=== PATIENT | male | born 1955 | race Hispanic/Latino ===

== ENCOUNTER 2017-08-08 17:24 | Emergency (ER) | payer BC, MEDICAID, OTHER ==
[2017-08-08 17:48] VITALS: RESP 20
--- NOTE | 2017-08-08 18:02 | ED PDOC ---
Arrival/HPI - General Chief Complaint: Abdominal Pain Time Seen by Provider: 08/08/17 17:46 Historian: Patient, Family - History of Present Illness Narrative History of Present Illness (Text): 08/08/17 17:58 61 y/o male, no pmh, nkda, here with the son, c/o acute onset of the lt. flank pain started about 3 hours ago while he was sitting which he was vomiting earlier but then the pain resolved. Pt. stated that the pain was sharp, never had this howard pain before, took advil which he feels better now in the ER. Pt. has no numbness or tingling, no urinary or bowel incontinence , no night sweat, no rash, no palpitation, no chest pain shortness of breath, no other medical or psychological complaints. Pt. is here with the son, asking to leave the ER as he feels better already and doesn't want any labs or radiology studies , only agreed to the EKG which I recommended to him. Past Medical History - Provider Review Nursing Documentation Reviewed: Yes - Infectious Disease Hx of Infectious Diseases: None - Psychiatric Hx Psychophysiologic Disorder: No Hx Substance Use: No - Anesthesia Hx Anesthesia: No Hx Anesthesia Reactions: No Hx Malignant Hyperthermia: No Family/Social History - Physician Review Nursing Documentation Reviewed: Yes Family/Social History: Unknown Family HX Smoking Status: Never Smoked Hx Alcohol Use: No Hx Substance Use: No Allergies/Home Meds Allergies/Adverse Reactions: Allergies No Known Allergies Allergy (Verified 08/08/17 17:49) Home Medications: Home Meds Medication Instructions Recorded Confirmed No Known Home Med 08/08/17 08/08/17 Review of Systems - Review of Systems Constitutional: absent: Fatigue, Fevers Eyes: absent: Vision Changes ENT: absent: Hearing Changes Respiratory: absent: SOB, Cough Cardiovascular: absent: Chest Pain Gastrointestinal: absent: Abdominal Pain, Diarrhea, Nausea, Vomiting Musculoskeletal: absent: Arthralgias, Back Pain, Neck Pain, Joint Swelling, Myalgias Skin: absent: Rash, Pruritis Neurological: absent: Headache, Dizziness, Focal Weakness, Gait Changes, Speech Changes Physical Exam Vital Signs Reviewed: Yes Vital Signs Temp Pulse Resp BP Pulse Ox 08/08/17 18:14 98 F 75 20 121/72 100 08/08/17 17:44 98.5 F 66 20 120/93 H 96 Temperature: Afebrile Blood Pressure: Hypertensive Pulse: Regular Respiratory Rate: Normal Appearance: Positive for: Well-Appearing, Non-Toxic, Comfortable Pain Distress: None Mental Status: Positive for: Alert and Oriented X 3 - Systems Exam Head: Present: Atraumatic, Normocephalic Pupils: Present: PERRL Extroacular Muscles: Present: EOMI Conjunctiva: Present: Normal Ears: Present: NORMAL TM, Normal Canal. No: Erythema Mouth: Present: Moist Mucous Membranes Neck: Present: Normal Range of Motion Respiratory/Chest: Present: Clear to Auscultation, Good Air Exchange. No: Respiratory Distress, Accessory Muscle Use, Wheezes, Decreased Breath Sounds, Rales, Retracting, Rhonchi, Tachypneic, Tender to Palpation Cardiovascular: Present: Regular Rate and Rhythm, Normal S1, S2. No: Murmurs Abdomen: Present: Normal Bowel Sounds, Other (negative lemons signs). No: Tenderness, Distention, Peritoneal Signs, Rebound, Guarding Back: Present: Normal Inspection, Other (Thoracic to LS spine: no midline tenderness or step off, no paraspinal tenderness, no rash, FROM without limitation, sensation intact, motor 5/5, no rash. ). No: CVA Tenderness, Midline Tenderness, Paraspinal Tenderness, Pain with Leg Raise Upper Extremity: Present: Normal Inspection. No: Cyanosis, Edema Lower Extremity: Present: Normal Inspection. No: Edema Neurological: Present: GCS=15, Speech Normal, Motor Func Grossly Intact, Gait Normal, Memory Normal Skin: Present: Warm, Dry, Normal Color. No: Rashes Psychiatric: Present: Alert, Oriented x 3, Normal Insight, Normal Concentration Medical Decision Making ED Course and Treatment: 08/08/17 18:02 -I explained to the patient that he should get at least labs/radiology studies including but not limited to rule out any ureterlithiasis vs. pneumonia vs. pancreatitis vs. myocardial infarction vs. pylonephritis vs. diverticulitis vs. dissection or any other possible unknown/undiagnosed disease. Pt. refused all the labs and radiology testing including the medications, only agreed to the EKG. -EKG ordered. 08/08/17 18:16 -NSR @ 80 BPM, no ST elevation or depression, T wave in version on the lead III and aVF. -I explained to the son and the patient that I would like to obtain lab works and radiology studies for this sudden acute onset of the pain which triggered him to come to the ER, pt. doesn't wanna stay and wants to leave the ER. The son respect his father's decision of leaving and will drive him home AMA ER The patient refuses to stay in the Emergency Room (ER) to continue the care and wishes to leave the emergency department against my medical advice. Patient was told that staying in the ER is necessary and a full explanation of the reasons why was given, and understood by the patient with alert and oriented x4. The risk of leaving were explained in laymans term and including but not limited to ureterlithiasis, pneumonia, pancreatitis, cancer, tumor, myocarial infarction , coronary artery disease, pylonephritis, diverticulitis, bowel perforation, dissection, renal stone , pain, worsening of condition, permanent disability and from an undiagnosed or untreated condition. The patient accepts these risks, and is in my judgment is competent and capable of understanding the clinical situation and explanation of the risk of leaving. Patient was given the opportunity to ask questions and change mind. The patient was instructed regarding the best care for the present symptoms, and to follow up as soon as possible with the primary care doctor including specialist or return to the emergency department at an y time for continuing care. -AMA signed -Pt. left the ER prior to signing the discharge paper. Pt. walk out the ER with the son with normal gait and posture, stated that he has no pain now. -Pt. refused prescriptions -You leave the ER against medical advice which you refused labs/radiology studies and further observation to correctly diagnosed your complaints today at the ER. You are advised to stay in the ER for further evaluation. Please follow up with your own pmd as soon as possible. - EKG Interpretation EKG Interpretation (Text): 08/08/17 18:16 NSR @ 80 BPM, no ST elevation or depression, T wave in version on the lead III and aVF. Interpreted by ED Physician: Yes Type: 12 lead EKG Comparison: No previous EKG avail. - PA / SCHOOL OFFICE ASSISTANT / Resident Statement MD/DO has reviewed & agrees with the documentation as recorded. Disposition/Present on Arrival - Present on Arrival Any Indicators Present on Arrival: No History of DVT/PE: No History of Uncontrolled Diabetes: No Urinary Catheter: No History of Decub. Ulcer: No History Surgical Site Infection Following: CABG - Mediastinitis, None - Disposition Have Diagnosis and Disposition been Completed?: Yes Diagnosis: Flank pain, Back pain, Abnormal EKG, Non-compliant patient Disposition: AGAINST MEDICAL ADVICE Disposition Time: 18:20 Condition: STABLE Additional Instructions: -You leave the ER against medical advice which you refused labs/radiology studies and further observation to correctly diagnosed your complaints today at the ER. You are advised to stay in the ER for further evaluation. Please follow up with your own pmd as soon as possible. Referrals: [facility], [Non-Staff] - Follow up with primary Neris Ernandez MD [Staff Provider] - Follow up with primary Paul Echols MD [Staff Provider] - Follow up with primary Forms: [facility] ([place]ian), WORK NOTE
[2017-08-08 18:16] VITALS: BP 121/72; PULSE 75; TEMP 98; O2SAT 100
--- NOTE | 2017-08-09 08:41 | CARD ---
APPROVED REPORT EKG Measurement Heart [id number] [place] [id number] <Conclusion> Normal sinus rhythm LAD PRWP NSSTW changes
== END 2017-08-08 18:20 | disposition left against medical advice (07) ==
LOC: ED 17:24
DX: R10.9 Unspecified abdominal pain (principal); M54.9 Dorsalgia, unspecified; R94.31 Abnormal electrocardiogram [ECG] [EKG]; Z91.19 Patient's noncompliance with other medical treatment and regimen

== ENCOUNTER 2017-08-10 13:52 | Inpatient (IN) | payer BC ==
[2017-08-10] MEDS ORDERED: Sodium Chloride 0.9% 1,000 ML IV STA (14:36)
--- NOTE | 2017-08-10 14:42 | ED PDOC ---
Arrival/HPI - General Chief Complaint: Abdominal Pain Time Seen by Provider: 08/10/17 14:21 Historian: Patient - History of Present Illness Narrative History of Present Illness (Text): 08/10/17 14:43 A 61 year old male presents to the emergency department complaining of left lower quadrant abdominal discomfort since this morning. No relieving or exacerbating factors. Patient denies any nausea, vomiting or any other complaints at this time. Last normal bowel movement was this morning. Symptom Onset: Sudden Symptom Course: Unchanged Activities at Onset: Rest Context: Home Past Medical History - Provider Review Nursing Documentation Reviewed: Yes - Infectious Disease Hx of Infectious Diseases: None - Psychiatric Hx Psychophysiologic Disorder: No Hx Substance Use: No - Anesthesia Hx Anesthesia: No Hx Anesthesia Reactions: No Hx Malignant Hyperthermia: No Family/Social History - Physician Review Nursing Documentation Reviewed: Yes Family/Social History: No Known Family HX Smoking Status: Never Smoked Hx Alcohol Use: No Hx Substance Use: No Allergies/Home Meds Allergies/Adverse Reactions: Allergies No Known Allergies Allergy (Verified 08/10/17 14:03) Home Medications: Home Meds Medication Instructions Recorded Confirmed No Known Home Med 08/08/17 08/10/17 Review of Systems - Physician Review All systems were reviewed & negative as marked: Yes Physical Exam - Physical Exam Narrative Physical Exam (Text): 08/10/17 14:39 - Review of Systems Constitutional: Normal. absent: Fatigue, Weight Change, Fevers Eyes: Normal ENT: denies sore throat, denies tristhmus Respiratory: Normal. absent: SOB, Cough, Sputum Cardiovascular: absent: Chest Pain, Palpitations, Syncope Gastrointestinal: left lower quadrant abdominal discomfort. absent: Diarrhea, Nausea, Vomiting Genitourinary: Normal. absent: Dysuria, Frequency, Hematuria Musculoskeletal: Normal. absent: Arthralgias, Back Pain, Neck Pain Skin: no rashes, no erythema Neurological: absent: Focal Weakness Endocrine: Normal Hemo/Lymphatic: Normal Psychiatric: No suicidal or homicidal ideations Physical exam Patient appears age appropriate in no distress, speaking full sentences without difficulty - Systems Exam Head: Present: Atraumatic, Normocephalic Pupils: Present: PERRL Extroacular Muscles: Present: EOMI Conjunctiva: Present: Normal Mouth: Present: Moist Mucous Membranes Neck: Present: Normal Range of Motion. No: MIDLINE TENDERNESS, Paraspinal Tenderness Respiratory/Chest: Present: Clear to Auscultation, Good Air Exchange. No: Respiratory Distress, Accessory Muscle Use, Tachypneic Cardiovascular: Present: Regular Rate and Rhythm, Normal S1, S2, Peripheal Pulses Present. No: Murmurs Abdomen: Present: LLQ tenderness to palpation, Normal Bowel Sounds. No: Distention, Peritoneal Signs, Rebound, Guarding Back: Present: Normal Inspection. No: Midline Tenderness, Paraspinal Tenderness Upper Extremity: Present: Normal Inspection. No: Cyanosis, Edema Lower Extremity: Present: Normal Inspection. No: Edema Neurological: Present: GCS=15, Speech Normal, cranial nerves II through XII fully intact with no cerebellar abnormality, neurosensory fully intact. No focal neurological deficits. Skin: Present: Warm, Dry, Normal Color. No: Rashes Lymphatic: Present: OX3, NI, NC Psychiatric: Present: Alert, Oriented x 3, Normal Insight, Normal Concentration Vital Signs Reviewed: Yes Vital Signs Temp Pulse Resp BP Pulse Ox 08/10/17 14:03 98.3 F 72 16 141/90 98 Temperature: Afebrile Blood Pressure: Normal Pulse: Regular Respiratory Rate: Normal Appearance: Positive for: Well-Appearing, Non-Toxic, Comfortable Pain Distress: None Mental Status: Positive for: Alert and Oriented X 3 Medical Decision Making ED Course and Treatment: 08/10/17 14:37 Impression: A 61 year old male with left lower quadrant abdominal discomfort. On physical exam, patient had left lower quadrant tenderness to palpation. Differential Diagnosis included but are not limited to: diverticulitis vs. nonspecific abdominal pain Plan: -- CT abd/pelvis -- labs -- Urinalysis -- IV fluids, Toradol -- Reassess and disposition Prior Visits: Notes and results from previous visits were reviewed. Patient was last seen in the emergency department on 08/08/17 for evaluation of left flank pain. Patient was signed out against medical advice. Progress Notes: 08/10/17 18:[address] scan as read by radiologist Dr. Cabrera shows obstructive uropathy in the proximal left ureteral calculus at the level of L4, measuring 5 mm. This is accompanied by proximal hydroureter and hydronephrosis. Patient states that he still having some left lower quadrant discomfort. Leukocytosis noted as well 08/10/17 18:[address] Bart Hester, accepted admission to his service with Dr. Su on consult pt aware of and agrees with plan - Lab Interpretations Lab Results: 08/10/17 15:05 08/10/17 15:05 Lab Results 08/10/17 15:05: Sodium 141, Potassium 4.0, Chloride 106, Carbon Dioxide 25, Anion Gap 14, BUN 20, Creatinine 1.2, Est GFR ( Amer) > 60, Est GFR (Non- Af Amer) > 60, Random Glucose 95, Calcium 9.6, Total Bilirubin 0.9, AST 37, ALT 31, Alkaline Phosphatase 75, Total Protein 7.1, Albumin 4.4, Globulin 2.7, Albumin/Globulin Ratio 1.6, Lipase 55 08/10/17 15:05: PT 10.7, INR 0.99, APTT 28.8 08/10/17 15:05: WBC 12.9 H, RBC 5.20, Hgb 16.2, Hct 45.2, MCV 86.9, MCH 31.2, MCHC 35.8, RDW 12.9, Plt Count 197, MPV 11.1 H, Gran % 81.5 H, Lymph % (Auto) 9.3 L, Maries % (Auto) 9.0 H, Eos % (Auto) 0.0 L, Baso % (Auto) 0.2, Gran # 10.55 H, Lymph # 1.2, Maries # 1.2 H, Eos # 0.0, Baso # 0.03 I have reviewed the lab results: Yes - RAD Interpretation Radiology Orders: 08/10/17 14:36 ABD & PELVIS IV CONTRAST ONLY [CT] Stat - Medication Orders Current Medication Orders: Discontinued Medications Sodium Chloride (Sodium Chloride 0.9%) 1,000 mls @ 1,000 mls/hr IV .Q1H STA Stop: 08/10/17 15:35 Last Admin: 08/10/17 15:09 Dose: 1,000 mls/hr eMAR Start Stop Document 08/10/17 15:09 MR (Rec: 08/10/17 15:09 MR [id number]) Intravenous Solution Start Date 08/10/17 Start Time 15:09 End Date 08/10/17 End time 16:09 Total Infusion Time 60 Ketorolac Tromethamine (Toradol) 30 mg IVP STAT STA Stop: 08/10/17 14:37 Last Admin: 08/10/17 15:09 Dose: 30 mg MAR Pain Assessment Document 08/10/17 15:09 MR (Rec: 08/10/17 15:10 [id number]) Pain Reassessment Is this a pain reassessment? No Sleep Is patient sleeping during reassessment? No Presence of Pain Presence of Pain Yes Pain Scale Used Pain Scale Used Numeric Location Left, Right or Bilateral Left Upper or Lower Lower Pain Location Body Site Abdomen Description Description Constant Intensity of Pain at present 8 Pain Behavior Irritability Restlessness IVP Administration Document 08/10/17 15:09 MR (Rec: 08/10/17 15:10 [id number]) Charges for Administration # of IVP Administrations 1 Morphine Sulfate (Morphine) 6 mg IVP STAT STA Stop: 08/10/17 18:44 - Scribe Statement The provider has reviewed the documentation as recorded by the Kristopheribviktoriya Ellis Provider Scribe Attestation: All medical record entries made by the Scribe were at my direction and personally dictated by me. I have reviewed the chart and agree that the record accurately reflects my personal performance of the history, physical exam, medical decision making, and the department course for this patient. I have also personally directed, reviewed, and agree with the discharge instructions and disposition. Disposition/Present on Arrival - Present on Arrival Any Indicators Present on Arrival: No History of DVT/PE: No History of Uncontrolled Diabetes: No Urinary Catheter: No History of Decub. Ulcer: No History Surgical Site Infection Following: CABG - Mediastinitis, None - Disposition Have Diagnosis and Disposition been Completed?: Yes Diagnosis: Ureteral colic Disposition: HOSPITALIZED Disposition Time: 18:55 Patient Plan: Admission Condition: FAIR Referrals: PCP,NO [Primary Care Provider] - Follow up with primary Forms: [employer] (Swedish)
[2017-08-10 15:16] LABS: BASO # 0.03 K/mm3 (0.0-2.0); BASO % 0.2 % (0.0-3.0); GRAN # 10.55 (1.4-6.5); GRAN % 81.5 % (50.0-68.0); HEMATOCRIT 45.2 % (42.0-52.0); LYMPH # 1.2 (1.2-3.4); LYMPH % 9.3 % (22.0-35.0); MEAN CELL VOLUME 86.9 fl (80.0-105.0); MEAN CORPUSCULAR HEMOGLOBIN 31.2 pg (25.0-35.0); MEAN CORPUSCULAR HGB CONC 35.8 g/dl (31.0-37.0); MEAN PLATELET VOLUME 11.1 fl (7.0-11.0); MONO # 1.2 (0.1-0.6); RED CELL DISTRIBUTION WIDTH 12.9 % (11.5-14.5); WHITE BLOOD COUNT 12.9 10^3/ul (4.5-11.0)
[2017-08-10 15:34] LABS: ALB/GLOB RATIO 1.6 (1.1-1.8); ALKALINE PHOSPHATASE 75 U/L (38-126); ALT/SGPT 31 U/L (7-56); AST/SGOT 37 U/L (17-59); BILIRUBIN,TOTAL 0.9 mg/dL (0.2-1.3); BLOOD UREA NITROGEN 20 mg/dL (7-21); CALCIUM 9.6 mg/dL (8.4-10.5); CARBON DIOXIDE 25 mmol/L (21-33); CHLORIDE 106 mmol/L (98-107); GFR AFRICAN-AMERICAN > 60; GLUCOSE,RANDOM 95 mg/dL (70-110); LIPASE 55 U/L (23-300); SODIUM 141 mmol/L (132-148); TOTAL PROTEIN 7.1 g/dL (5.8-8.3)
[2017-08-10 15:41] LABS: INR 0.99 (0.93-1.08); PARTIAL THROMBOPLASTIN TIME 28.8 Seconds (23.7-30.8)
[2017-08-10] MEDS ORDERED: Iohexol 350 MG/100 ML VIAL ONE (16:45)
--- NOTE | 2017-08-10 18:28 | CT ---
PROCEDURE: CT Abdomen and Pelvis with contrast HISTORY: Left lower quadrant abdominal pain COMPARISON: None. TECHNIQUE: Contrast dose: 96 cc Omnipaque 300 Radiation dose: Total exam DLP = 917.41 mGy-cm. This CT exam was performed using one or more of the following dose reduction techniques: Automated exposure control, adjustment of the mA and/or kV according to patient size, and/or use of iterative reconstruction technique. FINDINGS: LOWER THORAX: Unremarkable. LIVER: Unremarkable. No gross lesion or ductal dilatation. GALLBLADDER AND BILE DUCTS: Unremarkable. PANCREAS: Unremarkable. No gross lesion or ductal dilatation. SPLEEN: Unremarkable. ADRENALS: Unremarkable. No mass. KIDNEYS AND URETERS: Calculi in the lower pole collecting system left kidney the largest measures 7.5 mm. Obstructing calculus proximal left ureter 5 mm. This appears at the level of the L4 vertebral body. No distal left ureteral calculi identified. Right kidney: Solitary 2 mm calculus Nonobstructing upper pole right kidney. Incidental finding(s): Left renal cysts. VASCULATURE: Unremarkable. No aortic aneurysm. BOWEL: Constipation without fecal impaction or obstruction. APPENDIX: Normal appendix. PERITONEUM: Unremarkable. No free fluid. No free air. LYMPH NODES: Unremarkable. No enlarged lymph nodes. BLADDER: Unremarkable. REPRODUCTIVE: Unremarkable. BONES: No acute fracture. OTHER FINDINGS: None. IMPRESSION: Obstructive uropathy related to proximal left ureteral calculus at the level of the L4 vertebral body measuring 5 mm. Proximal hydroureter, hydronephrosis identified. Upper tract calculi confined to the lower pole collecting system on the left. Nonobstructing upper pole calculi right kidney. Additional benign and/or incidental findings described above.
[2017-08-10] MEDS ORDERED: cefTRIAXone 1 gm 1 GM/100 ML BAG IV STA (18:50)
[2017-08-10 22:30] VITALS: RESP 20; BMI 28.3
--- NOTE | 2017-08-11 09:03 | HP ---
HISTORY OF PRESENT ILLNESS: The patient is a 61-year-old male who presented to the emergency room complaining of abdominal pain in the left flank, left lower quadrant. He had been in the emergency room a few days ago; however, while there, the pain had subsided. The patient was feeling well and he left against medical advice. Now, the pain has recurred; therefore, he returned to the emergency room for further evaluation. The patient is a retired merchant marine skipper. He is with 1 son. He has essentially no past medical history. He was taking no medication at the time of admission. Has NO KNOWN MEDICAL ALLERGIES. He is a nonsmoker, nonalcoholic/drinker. PHYSICAL EXAMINATION: HEAD, EYES, EARS, NOSE, AND THROAT: Unremarkable. NECK: Supple with no lymphadenopathy, no goiter. LUNGS: Clear to auscultation and percussion. HEART: Regular. No murmurs, gallops or rubs appreciated. ABDOMEN: Soft and nontender. There is no CVA tenderness. EXTREMITIES: Free of cyanosis, clubbing, or edema. NEUROLOGIC: The patient is awake, alert and oriented with no focal neurological signs. LABORATORY STUDIES: Showed white blood cell count to be 12.9, hemoglobin and hematocrit of 16.2 and 45.2, platelet count is 197. Sodium is 141, potassium 4.0, blood urea nitrogen is 20, creatinine 1.2, nonfasting glucose is 95. X-rays revealed a 5-mm left ureteral calculus at the level of L4. There was some hydroureter and hydronephrosis also noted. The condition was explained to the patient and he agreed to hospitalization. Consultation from Dr. Su and Dr. Uriarte, the urologist, is requested. The patient will be reevaluated in the morning and he will be followed closely. Derian Hester MD
[2017-08-11 09:23] VITALS: BP 124/88; PULSE 67; TEMP 97.6; O2SAT 97
--- NOTE | 2017-08-11 09:44 | CARD ---
APPROVED REPORT EKG Measurement Heart [id number] [place] 166P58 [id number] <Conclusion> Poor data quality, interpretation may be adversely affected Normal sinus rhythm Normal ECG
--- NOTE | 2017-08-11 11:45 | RAD ---
PROCEDURE: Abdomen multiple views HISTORY: is left ureteral s tone visible COMPARISON: CT scan 08/10/2017 TECHNIQUE: Three views FINDINGS: The 5 mm left ureteral stone is visualized on plain film. This is seen at the level of the L3-4 disc space. Left renal stones are also visible. The right side is unremarkable IMPRESSION: 5 mm left mid ureteral stone
--- NOTE | 2017-08-11 18:08 | CON ---
DATE: 08/11/2017 GENITOURINARY CONSULTATION CHIEF COMPLAINT: Left renal colic. HISTORY OF PRESENT ILLNESS: The patient is a 61-year-old male who was in the ER on Thursday for left colic. He was given pain medicine, was pain free and went home. He came back to the ER with some left flank pain, again given pain medicine. He has been pain free for 18 hours. No nausea. No vomiting. No lower urinary tract symptoms. No flank pain whatsoever, afebrile, white count was 12,000 on admission. A CAT scan was done, which showed a non-obstructing left lower caliceal stone approximately 7 mm and an upper ureteral stone which they called 5 mm but I think it is smaller. He has had no prior stones. ALLERGIES: REVEALS HE HAS NO ALLERGIES. MEDICATIONS: He takes no medicine. SOCIAL HISTORY: He does not smoke or drink. FAMILY HISTORY: Noncontributory. REVIEW OF SYSTEMS: Currently, no symptoms referable to the head, eyes, ears, nose, or throat. No cardiac, respiratory or GI symptoms. No psychiatric, dermatologic, musculoskeletal symptoms. No neurologic symptoms. PHYSICAL EXAMINATION: VITAL SIGNS: Shows him to be afebrile, pulse 65, blood pressure 109/80, respiration 20. HEENT: Normocephalic. Sclerae clear. Conjunctivae non-injected. NECK: Supple. No CVA pain. ABDOMEN: No hepatosplenomegaly, rebound or guarding negative. GENITALIA: Unremarkable. LABORATORY DATA: Calcium is 9.6, creatinine is 1.2. White count was 12,900 yesterday. I reviewed the CAT scan films. PLAN: I discussed with the patient, he is totally comfortable. I think there is an excellent chance this could pass on its own. I would not intervene at this time. He is being sent home with a prescription for Flomax and was told to return to the ER if any fever, chills, intractable pain or vomiting. Otherwise, he will call me in 2 days and tell me how he was doing. He will be given a period of expectancy. If he has to be readmitted, then I would intervene by placing a stent and an elective ESWL. Tyron Su MD [facility] # [id number]
== END 2017-08-11 11:43 | disposition home or self-care (01) | DRG 694 ==
LOC: ED 13:52 → ERH 18:51 → 3RNO 08-11 01:09
PROVIDERS: ADMIT Internal Medicine; ATTEND Internal Medicine
DX: N13.2 Hydronephrosis with renal and ureteral calculous obstruction (principal)